=== PATIENT | male | born 1980 | race Hispanic/Latino ===

== ENCOUNTER 2023-10-17 01:02 | Emergency (ER) | payer OTHER ==
[2023-10-17 02:08] LABS: #Monocytes 1.4 thou/uL (0.11-0.59); #Neutrophils 8.4 thou/uL (1.40-6.50); %Basophils 0.1 % (0.0-1.0); %Eosinophils 0.1 % (0.0-10.0); %Lymphocytes 11.9 % (21.0-51.0); %Monocytes 12.2 % (0.0-10.0); %Neutrophils 75.3 % (42.0-75.0); Hematocrit 41.2 % (42.0-52.0); Mean Corpuscular Hemoglobin 29.2 pg (27.0-31.0); Mean Corpuscular Volume 85.8 fl (78.0-98.0); Mean Platelet Volume 11.9 fL (7.4-10.4); Platelet Count 218 10x3/uL (130-400); RBC Distribution Width 11.9 % (11.5-14.5); White Blood Cell (WBC) Count 11.2 10x3/uL (4.8-10.8)
[2023-10-17 02:10] LABS: Base Excess 3.8 mEq/L (-2.0 to +3.0); Calcium, Ionized (venous) 1.08 mmol/L (1.16-1.32); Chloride (VBG) 93 mmol/L (98-106); Hematocrit-VBG 43 % (42.0-52.0); Hemoglobin (Hb) 14.7 g/dL (13.1-17.2); Potassium (VBG) 3.49 mmol/L (3.70-5.30); Sodium 133 mmol/L (133-146); pH (venous) 7.458 (7.32-7.43)
[2023-10-17] MEDS ORDERED: Ketorolac Tromethamine 30 MG/ML VIAL ONE (02:22)
[2023-10-17] MEDS ORDERED: Famotidine/PF 20 mg/2ml Vial ONE (02:22)
[2023-10-17] MEDS ORDERED: Metoclopramide HCl 10 MG/2 ML VIAL ONE (02:22)
[2023-10-17 02:25] LABS: Phosphorus 2.4 mg/dL (2.3-4.7)
[2023-10-17 02:28] LABS: Bacteria/HPF None Seen HPF (None Seen); Bilirubin Negative (Negative); Blood, Urine Negative (Negative); CAUTI Indications for Culture Pelvic or flank pain; Clarity Clear (Clear); Glucose, Urine (Dipstick) 300 mg/dL (Negative); Ketone, Urine 60 mg/dL (Negative); Leukocyte Negative Leu/uL (Negative); Nitrite Negative (Negative); Protein, Urine (Dipstick) Negative (Neg-Trace); RBC/HPF 0-3 HPF (0-3); Specific Gravity, Urine 1.014 (1.002-1.036); Squamous Epithelial None Seen HPF (0-3); Urobilinogen Normal mg/dL (Less than 2); WBC/HPF 0-3 HPF (0-3); pH, Urine 6.5 (5.0-9.0)
[2023-10-17 02:28] LABS: ALT (SGPT) 15 U/L (8-55); AST (SGOT) 24 U/L (5-34); Albumin 4.2 g/dL (3.5-5.0); Alkaline Phosphatase 98 U/L (40-110); Anion Gap 17 mmol/L (10-20); BUN (Urea Nitrogen) 13 mg/dL (8.9-20.6); Bilirubin, Total 2.2 mg/dL (0.2-1.2); Calc. Creatinine Clearance 0 mL/min (70-130); Calcium 9.2 mg/dL (7.8-10.44); Carbon Dioxide 27 mmol/L (22-29); Chloride 92 mmol/L (98-107); Estimated GFR 110; Glucose 209 mg/dL (70-105); Potassium 3.4 mmol/L (3.5-5.1); Protein, Total 7.2 g/dL (6.0-8.3); Sodium 133 mmol/L (136-145)
[2023-10-17 02:31] LABS: Troponin I Less than 0.010 ng/mL (< 0.028)
[2023-10-17 02:33] LABS: Urine Culture Reflex No No
[2023-10-17 02:37] LABS: Amphetamine Not Detected (NotDetected); Barbiturates Screen Not Detected (NotDetected); Benzodiazepine Screen Not Detected (NotDetected); Cocaine Metabolite Screen Not Detected (NotDetected); Methadone Not Detected (NotDetected); Methamphetamine Not Detected (NotDetected); Opiate Screen Not Detected (NotDetected); Oxycodone Screen Not Detected (NotDetected); Phencyclidine (PCP) Not Detected (NotDetected); THC/Cannabinoid Screen Not Detected (NotDetected); Tricyclic Screen Not Detected (NotDetected)
[2023-10-17] MEDS ORDERED: Potassium Chloride 20 MEQ TAB ONE (04:56)
[2023-10-17] MEDS ORDERED: Iopamidol-370 76% 500 ML MDV (1 ML CHARGE) ONE (13:07)
== END 2023-10-17 05:15 ==
LOC: EEVIPCON 01:02 → ERS 01:02
DX: R11.2 Nausea with vomiting, unspecified (principal); R10.84 Generalized abdominal pain; R79.89 Other specified abnormal findings of blood chemistry; E11.43 Type 2 diabetes mellitus with diabetic autonomic (poly)neuropathy; K31.84 Gastroparesis; I10 Essential (primary) hypertension; Z79.4 Long term (current) use of insulin
CPT/HCPCS: 36415; 36416; 74177; 80053; 80306; 81001; 82010; 82805; 83735; 84100; 84484; 85025; 93005; 96361; 96374; 96375; J1885; J2765; Q9967; S0028